=== PATIENT | female | born 1995 | race African-American/Black ===

== ENCOUNTER 2024-12-31 15:30 | Emergency (ER) | payer MEDICAID ==
[~2024-12-31] VITALS: Ht 152.4 cm; Wt 68.3 kg
--- NOTE | 2024-12-31 15:47 | Physician Documentation ---
History of Present Illness ~ Chief Complaint: Complications Stated Complaint: ISSUES Time Seen by MD: 16:33 HPI This is a 29-year-old female who is approximately 16 weeks who presents with pelvic discomfort and cramping for one day Patient reports no dysuria or spotting. Denies fever or nausea vomit Patient states that she thought she maybe she just over did it which led to left-sided pelvic discomfort.. Reports her last menstrual period was September 06 1 Para 4 Day of Onset: Dec 31, 2024 Medication Reconciliation Allergies: Coded Allergies: No Known Allergies (Unverified , 12/31/24) Scheduled Pnv No.122/Iron/Folic Acid ( Multi Tablet), 1 TAB PO DAILY, (Reported) Review of Systems All Other Systems at this time: Reviewed and Negative ROS As stated above in the HPI, otherwise all systems are reviewed and negative. Physical Exam Physical Exam Vital Signs: Temperature: 99.0, Source: Temporal, Heart Rate: 76, Respiratory Rate: 18, BP: 111/61, Pulse Oximetry: 100, Weight: 68.300 Oxygen Flow Rate: 0 Physical Exam VITALS: Reviewed and as above. GENERAL: Alert, nontoxic appearing, no apparent distress. HEENT: RESPIRATORY: No increased work of breathing, no respiratory distress, speaking in full clear sentences GI: Bowel sounds present an nontender throughout all quadrants MUSCULOSKELETAL: SKIN: NEURO: PSYCH: Progress Results/Orders Results/Orders Vital Signs 12/31/24 12/31/24 12/31/24 12/31/24 15:38 16:10 17:30 17:40 Temp 99.0 99.0 99.0 Pulse 76 65 72 Resp 18 15 16 B/P (MAP) 111/61 107/60 (76) 112/71 (85) Pulse Ox 100 99 100 O2 Flow Rate 0 0 Laboratory Tests Test 12/31/24 15:50 12/31/24 17:19 White Blood Count 5.3 Red Blood Count 3.75 L Hemoglobin 10.8 L Hematocrit 31.7 L Mean Corpuscular Volume 84.5 Mean Corpuscular Hemoglobin 28.8 Mean Corpuscular Hemoglobin Concent 34.1 Red Cell Distribution Width 12.9 Platelet Count 264 Mean Platelet Volume 6.4 L Neutrophils (%) (Auto) 59.4 Lymphocytes (%) (Auto) 30.9 Monocytes (%) (Auto) 6.5 Eosinophils (%) (Auto) 2.7 Basophils (%) (Auto) 0.5 Neutrophils # (Auto) 3.2 Lymphocytes # (Auto) 1.6 Monocytes # (Auto) 0.3 Eosinophils # (Auto) 0.1 Basophils # (Auto) 0.0 CBC Comment Sodium Level 132 L Potassium Level 3.7 Chloride Level 102 Carbon Dioxide Level 25.9 Anion Gap 4 L Blood Urea Nitrogen 6 L Creatinine 0.61 Estimated GFR/1.73 m2 > 90 BUN/Creatinine Ratio 9.8 L Glucose Level 83 Calcium Level 8.2 L Total Bilirubin 0.5 Aspartate Amino Transf (AST/SGOT) 18 Alanine Aminotransferase (ALT/SGPT) 18 Alkaline Phosphatase 66 Total Protein 6.3 L Albumin 2.6 L Globulin 3.7 Albumin/Globulin Ratio 0.7 L HCG Beta Subunit 88226 Chemistry Comments Urine Specimen Description Cln catch midstream Urine Color Straw Urine Clarity Clear Urine pH 6.0 Urine Specific [place] <=1.005 Urine Protein Negative Urine Glucose (UA) Negative Urine Ketones Negative Urine Occult Blood Negative Urine Nitrite Negative Urine Bilirubin Negative Urine Urobilinogen 0.2 Urine Leukocyte Esterase Negative Urine Culture Indicated Not ind Volume Urine Centrifuged 10 ml Urine Comment Medical Decision Making Findings MSE performed in triage and patient returned to ED lobby by nursing staff Patient's beta quantitative hCG was appropriate to 16 weeks. Ultrasound did not indicate any intrauterine concerns a good flow and live intrauterine . No ectopic Differential Dx:Considerations: Include: -complete, - incomplete, -inevitable, -missed, -threatened, Abruptio placentae, Active labor-term, Active labor-, Appendicitis, Ryan-Duke contraction, Cystitis: Acute, Discomfort of , Ectopic , Ectopic preg.-ruptured, demise, Placenta previa, Pyelonephritis: Acute, Ruture of membranes, Third trimester bleeding, UTI, Vaginal bleeding, Vaginal delivery, Other Departure Disposition: 01 HOME / SELF CARE / HOMELESS Impression: Primary Impression: Complication of Discharge Instructions: Abdominal or Pelvic Ultrasound, [id number] Additional Instructions: Everything looks good. Your ultrasound was negative for any concerns I ailyn mmend following up with your OBGYN. Her hCG quantitative was also appropriate to 16 weeks Referrals: NO PRIMARY CARE PROVIDER (PCP) Signature Scribe Signature: r Attestation: Scribed for Penny Irvin Np by Penny Arana NP . 12/31/24 23:14 PANCHITO BRAND Dec 31, 2024 15:47 EPNNY IRVIN NP Dec 31, 2024 16:41 ORAL MATTSON MD Jan 02, 2025 07:26
[2024-12-31 16:01] LABS: BASOPHILS % (AUTO) 0.5 % (0-1); EOSINOPHILS # (AUTO) 0.1 X10'3 (0-0.9); EOSINOPHILS % (AUTO) 2.7 % (0-6); HEMATOCRIT 31.7 % (35.0-45.0); HEMOGLOBIN 10.8 g/dl (12.0-16.0); LYMPHOCYTES # (AUTO) 1.6 X10'3 (1.1-4.8); LYMPHOCYTES % (AUTO) 30.9 % (21-51); MEAN CORPUSCULAR HEMOGLOBIN 28.8 PG (27.0-31.0); MEAN CORPUSCULAR HGB CONC 34.1 g/dL (33.0-36.5); MEAN CORPUSCULAR VOLUME 84.5 FL (78-98); MEAN PLATELET VOLUME 6.4 FL (7.4-10.4); MONOCYTES # (AUTO) 0.3 X10'3 (0-0.9); MONOCYTES % (AUTO) 6.5 % (2-12); NEUTROPHILS # (AUTO) 3.2 X10'3 (1.8-7.7); NEUTROPHILS % (AUTO) 59.4 % (42-75); PLATELET COUNT 264 X10'3 (140-440); RED BLOOD COUNT 3.75 X10'6 (4.20-5.60); RED CELL DISTRIBUTION WIDTH 12.9 % (11.5-14.5); WHITE BLOOD COUNT 5.3 X10'3 (4.5-11.0)
[2024-12-31] MEDS ORDERED: PNV1TABL75 PO (16:13)
[2024-12-31 16:15] LABS: ALANINE AMINOTRANSFERASE 18 U/L (12-78); ALBUMIN 2.6 G/DL (3.4-5.0); ALBUMIN/GLOBULIN RATIO 0.7 (1.1-1.5); ALKALINE PHOSPHATASE 66 IU/L (46-116); ANION GAP 4 (8-16); ASPARTATE AMINO TRANSFERASE 18 U/L (10-37); BILIRUBIN,TOTAL 0.5 MG/DL (0.1-1.0); BLOOD UREA NITROGEN 6 MG/DL (7-18); BUN/CREATININE RATIO 9.8 (10.0-20.0); CALCIUM 8.2 MG/DL (8.5-10.1); CHLORIDE 102 MMOL/L (99-107); CREATININE 0.61 MG/DL (0.40-0.90); GLUCOSE 83 MG/DL (70-104); POTASSIUM 3.7 MMOL/L (3.5-5.1); SODIUM 132 MMOL/L (135-145); TOTAL CARBON DIOXIDE 25.9 MMOL/L (24-32); TOTAL PROTEIN 6.3 G/DL (6.4-8.2); eCRCL 96 ML/MIN; eGFR > 90 ML/MIN
[2024-12-31 16:56] LABS: BETA HCG,QUANTITATIVE 38431 mIU/ml
[2024-12-31 17:30] VITALS: BP 112/71; PULSE 72; RESP 16; O2SAT 100
[2024-12-31 17:32] LABS: BILIRUBIN,URINE NEGATIVE (Neg); CLARITY,URINE CLEAR (Clear); COLOR,URINE STRAW (Yellow); GLUCOSE, URINE NEGATIVE (Neg); KETONES,URINE NEGATIVE (Neg); LEUKOCYTE ESTERASE ,URINE NEGATIVE (Neg); NITRITES, URINE NEGATIVE (Neg); OCCULT BLOOD,URINE NEGATIVE (Neg); PROTEIN,URINE NEGATIVE (Neg); UROBILINOGEN,URINE 0.2 E.U/dL (0.2-1.0)
[2024-12-31 17:35] LABS: UA COLLECTION TYPE CLN CATCH MIDSTREAM
[2024-12-31 17:40] VITALS: TEMP 99
--- NOTE | 2024-12-31 18:39 | RADIOLOGY REPORT ---
LIMITED SURVEY CLINICAL HISTORY: pelvic pain left side COMPARISON: None TECHNIQUE: Real-time grayscale, color flow and M-mode imaging of the gravid uterus is performed. FINDINGS: Single living intrauterine gestation. Breech presentation. heart rate 143 beats per minute. Average ultrasound age 17 weeks 1 day. Estimated due date 06/09/2025. measurements (cm): BPD 3.7, HC 13.7, AC 11.8, FL 2.1. Estimated weight: 177 g. 71st percentile Placenta is anterior. The cervix measures approximately 4.9 cm in length and appears closed. No defin ite evidence of abruption or previa at this time. Amniotic fluid index 12.9 cm. IMPRESSION: Single living intrauterine gestation as above.
== END 2024-12-31 17:40 | disposition home or self-care (01) ==
LOC: ER 15:31
DX: O26.892 Other specified pregnancy related conditions, second trimester (principal); Z3A.16 16 weeks gestation of pregnancy
CPT/HCPCS: 36415; 76805; 80053; 81003; 84702; 85025; 99284

== ENCOUNTER 2025-02-13 21:56 | Emergency (ER) | payer MEDICAID ==
[~2025-02-13] VITALS: Ht 162.6 cm; Wt 70.5 kg
[~2025-02-13 21:56] MED LIST: PNV1TABL75 PO
[2025-02-13 22:09] VITALS: TEMP 98
--- NOTE | 2025-02-13 23:50 | VASCULAR REPORT ---
LEFT LOWER EXTREMITY VENOUS DUPLEX REASON FOR EXAMINATION: Left leg pain and edema. Bulge in left groin. Recent long flight. COMPARISON: None TECHNIQUE: Using real-time freeze-frame technique with a high-frequency transducer, multiple longitu dinal and transverse sections were obtained. Simultaneous color flow and spectral Doppler imaging wa s performed. FINDINGS: There is good visualization of the deep venous system with no intraluminal filling defects identified. Normal venous compressibility is seen and there is flow augmentation. Color flow Doppler imaging is unremarkable. Several compressible venous varicosities are identified in the left groin in the area of indicated bu lge. IMPRESSION: NO EVIDENCE OF DEEP VENOUS THROMBOSIS.
[2025-02-14 00:50] VITALS: BP 102/63; PULSE 68; RESP 16; O2SAT 99
== END 2025-02-14 01:30 | disposition left against medical advice (07) ==
LOC: ER 21:56
DX: O99.891 Other specified diseases and conditions complicating pregnancy (principal); Z53.21 Procedure and treatment not carried out due to patient leaving prior to being seen by health care provider; Z3A.22 22 weeks gestation of pregnancy
CPT/HCPCS: 93971